=== PATIENT | male | born 1970 | race Two or more races ===

== ENCOUNTER 2024-07-07 16:49 | Inpatient (IN) | payer OTHER, SELFPAY ==
[~2024-07-07] VITALS: Ht 172.7 cm; Wt 104.8 kg
[~2024-07-07 16:49] MED LIST: ASPI81CH43; IBU600T
[2024-07-07 19:10] LABS: Hemoglobin 9.8 g/dL (13.5-17.5)
[2024-07-07 19:13] LABS: Hematocrit 29.5 % (41.0-53.0); Mean Corpuscular Hemoglobin 31.3 pg (28.0-32.0); Mean Corpuscular Hgb Conc. 33.1 g/dL (32.0-36.0); Mean Corpuscular Volume 94.6 fL (80.0-100.0); Platelet Count (auto) 24 10^3/uL (140-450); Red Blood Cells 3.12 10^6/uL (4.5-5.90); White Blood Cell 2.5 10^3/uL (4.4-10.8)
[2024-07-07 19:30] LABS: Alanine Aminotransferase 23 U/L (7-40); Albumin 4.8 g/dL (3.2-4.8); Alkaline Phosphatase 82 U/L (46-116); Anion Gap 9 (5-15); Aspartate Aminotransferase 16 U/L (13-40); BUN/Creatinine Ratio 15.8 (10.0-20.0); Bilirubin, Total 0.5 mg/dL (0.2-1.0); Blood Urea Nitrogen 15 mg/dL (9-23); Calcium 9.5 mg/dL (8.7-10.4); Carbon Dioxide 25 mmol/L (20-30); Chloride 105 mmol/L (98-107); Glucose 97 mg/dL (74-106); Potassium 4.2 mmol/L (3.5-5.1); Sodium 139 mmol/L (136-145); Total Protein 7.7 g/dL (5.7-8.2)
[2024-07-07 20:00] LABS: Band Neutrophils % (manual) 0; Basophils % (manual) 0 (0.0-2.0); Blast Cells 0; Eosinophils % (manual) 0 (0-7); Metamyelocytes % 0; Myelocytes % 0; Promyelocytes % 0; Reactive Lymphocytes 0
[2024-07-07 20:16] LABS: Urine Bacteria None Seen /hpf (None Seen); Urine WBC None Seen /hpf (0 - 3)
[2024-07-07 20:23] LABS: Urine Blood Negative /uL (Negative); Urine Clarity Clear (Clear); Urine Color Light-Yellow (Yellow); Urine Protein, UAD 1+ (Negative); Urine Urobilinogen Normal (Negative)
[2024-07-07 21:04] LABS: Anisocytosis Moderate; Lymphocytes % (manual) 71 (10.0-50.0); Monocytes % (manual) 8 (0-12); Platelet Estimate Decreased
[2024-07-07] MEDS ORDERED: ACETAMINOPHEN 325 MG TAB PO PRN (22:30)
[2024-07-07] MEDS ORDERED: ONDANSETRON HCL 4 MG/2 ML VIAL IV PRN (22:30)
[2024-07-07 23:08] LABS: % Iron Saturation 37.6 % (20-55)
[2024-07-08] VITALS (9 sets, daily range): BP systolic 119–124; BP diastolic 42–61; PULSE 70–79; RESP 16–22; TEMP 98.1–98.4; O2SAT 95–100
[2024-07-08] MEDS ORDERED: MUPI2OIN2 TOP (01:10)
[2024-07-08 07:54] LABS: Mean Corpuscular Hgb Conc. 33.2 g/dL (32.0-36.0); White Blood Cell 2.7 10^3/uL (4.4-10.8)
[2024-07-08 07:58] LABS: Hematocrit 28.4 % (41.0-53.0); Hemoglobin 9.4 g/dL (13.5-17.5); Mean Corpuscular Hemoglobin 31.1 pg (28.0-32.0); Mean Corpuscular Volume 93.7 fL (80.0-100.0); Red Blood Cells 3.03 10^6/uL (4.5-5.90)
[2024-07-08 07:59] LABS: Red Cell Distribution Width 20.5 % (11.8-14.3)
[2024-07-08 08:00] LABS: Platelet Count (auto) 28 10^3/uL (140-450)
[2024-07-08 08:01] LABS: Basophils % (manual) 0 (0.0-2.0); Blast Cells 0; Eosinophils % (manual) 0 (0-7); Myelocytes % 0; Promyelocytes % 0
[2024-07-08 08:17] LABS: Alanine Aminotransferase 26 U/L (7-40); Albumin 4.5 g/dL (3.2-4.8); Alkaline Phosphatase 67 U/L (46-116); Anion Gap 6 (5-15); Aspartate Aminotransferase 14 U/L (13-40); Blood Urea Nitrogen 13 mg/dL (9-23); Calcium 9.3 mg/dL (8.7-10.4); Carbon Dioxide 26 mmol/L (20-30); Chloride 107 mmol/L (98-107); Glucose 95 mg/dL (74-106); Potassium 4.1 mmol/L (3.5-5.1); Sodium 139 mmol/L (136-145)
[2024-07-08 08:18] LABS: Bilirubin, Total 0.7 mg/dL (0.2-1.0); Total Protein 7.1 g/dL (5.7-8.2)
[2024-07-08 12:12] LABS: Band Neutrophils % (manual) 7; Lymphocytes % (manual) 49 (10.0-50.0); Metamyelocytes % 2; Monocytes % (manual) 8 (0-12); Reactive Lymphocytes 1
[2024-07-08 12:13] LABS: Platelet Estimate Decreased
[2024-07-08] MEDS: TAMSULOSIN HYDROCHLORIDE 0.4 MG CAP PO ONE (19:53)
[2024-07-09] VITALS (8 sets, daily range): BP systolic 97–137; BP diastolic 43–69; PULSE 69–85; RESP 14–18; TEMP 97.6–98.3; O2SAT 96–98
[2024-07-09 01:08] LABS: COVID19 ANTIGEN SOFIA FIA NEGATIVE (NEGATIVE); Rapid Influenza A Negative (Negative); Rapid Influenza B Negative (Negative)
[2024-07-09 01:58] LABS: Amphetamine Screen, Urine Neg (NEGATIVE); Barbiturate Scree,Urine Neg (NEGATIVE); Benzodiazephine Screen, Urine Neg (NEGATIVE); Cocaine Screen, Urine Neg (NEGATIVE); Opiate Scree,Urine Neg (NEGATIVE)
[2024-07-09 01:59] LABS: Cannabinoid Screen, Urine Neg (NEGATIVE); Phencyclidine Screen, Urine Neg (NEGATIVE)
[2024-07-09 06:06] LABS: CA 27.29 16.6 U/mL (0.0-38.6)
[2024-07-09 06:12] LABS: Anion Gap 7 (5-15); Carbon Dioxide 26 mmol/L (20-30); Chloride 106 mmol/L (98-107); Potassium 4.3 mmol/L (3.5-5.1); Sodium 139 mmol/L (136-145)
[2024-07-09 06:13] LABS: Calcium 9.4 mg/dL (8.7-10.4); Hemoglobin 9.5 g/dL (13.5-17.5); Mean Corpuscular Hemoglobin 31.4 pg (28.0-32.0); White Blood Cell 2.8 10^3/uL (4.4-10.8)
[2024-07-09 06:16] LABS: Hematocrit 28.5 % (41.0-53.0); Mean Corpuscular Hgb Conc. 33.3 g/dL (32.0-36.0); Mean Corpuscular Volume 94.5 fL (80.0-100.0); Platelet Count (auto) 26 10^3/uL (140-450); Red Blood Cells 3.02 10^6/uL (4.5-5.90); Red Cell Distribution Width 19.7 % (11.8-14.3)
[2024-07-09 06:18] LABS: BUN/Creatinine Ratio 14.3 (10.0-20.0); Blood Urea Nitrogen 12 mg/dL (9-23); Glucose 98 mg/dL (74-106)
[2024-07-09 06:22] LABS: Basophils % (manual) 0 (0.0-2.0); Blast Cells 0; Eosinophils % (manual) 0 (0-7); Myelocytes % 0; Promyelocytes % 0; Reactive Lymphocytes 0
[2024-07-09 07:08] LABS: INR 1.1 (0.9-1.15); Partial Thromboplastin Time 23.4 SEC (24.5-34.5); Prothrombin Time 11.6 sec (9.3-11.8)
[2024-07-09 09:12] LABS: Hepatitis B Core Total AB Negative (Negative)
[2024-07-09 09:29] LABS: Hepatitis A Total Antibody Positive (Negative)
[2024-07-09 09:30] LABS: Hepatitis B Surface Antibody Negative (Negative); Hepatitis B Surface Antigen Negative (Negative); Hepatitis C Antibody Negative (Negative)
[2024-07-09 10:28] LABS: Band Neutrophils % (manual) 5; Lymphocytes % (manual) 71 (10.0-50.0); Metamyelocytes % 2; Monocytes % (manual) 6 (0-12); Platelet Estimate Decreased
[2024-07-09 12:07] LABS: Cancer Antigen (CA) 125 8.2 U/mL (Not Estab.)
[2024-07-09 13:06] LABS: Anti-Centromere B Antibody <0.2 AI (0.0-0.9); Anti-Jo-1 Antibody <0.2 AI (0.0-0.9); Anti-dsDNA Antibody <1 IU/mL (0-9); Antichromatin Antibody <0.2 AI (0.0-0.9); Antiscleroderma-70 Antibody <0.2 AI (0.0-0.9); RNP Antibody <0.2 AI (0.0-0.9); Sjogren's Anti-SS-A Antibody <0.2 AI (0.0-0.9); Sjogren's Anti-SS-B Antibody <0.2 AI (0.0-0.9); Smith Antibody <0.2 AI (0.0-0.9)
[2024-07-09] MEDS: TAMSULOSIN HYDROCHLORIDE 0.4 MG CAP PO SCH (18:00)
[2024-07-09 21:06] LABS: CMV IgG Antibody <0.60 U/mL (0.00-0.59); CMV IgM Antibody <30.0 AU/mL (0.0-29.9)
[2024-07-10 01:09] VITALS: BP 132/72; PULSE 83; RESP 14; TEMP 98.1; O2SAT 96
[2024-07-10 06:44] LABS: Hematocrit 30.6 % (41.0-53.0); Red Blood Cells 3.27 10^6/uL (4.5-5.90)
[2024-07-10 06:48] LABS: Hemoglobin 10.3 g/dL (13.5-17.5); Mean Corpuscular Hemoglobin 31.4 pg (28.0-32.0); Mean Corpuscular Hgb Conc. 33.6 g/dL (32.0-36.0); Mean Corpuscular Volume 93.6 fL (80.0-100.0); Platelet Count (auto) 27 10^3/uL (140-450); Red Cell Distribution Width 19.8 % (11.8-14.3); White Blood Cell 2.7 10^3/uL (4.4-10.8)
[2024-07-10 07:06] LABS: Chloride 103 mmol/L (98-107); Potassium 4.1 mmol/L (3.5-5.1); Sodium 138 mmol/L (136-145)
[2024-07-10 07:07] LABS: Anion Gap 8 (5-15); Calcium 9.7 mg/dL (8.7-10.4); Carbon Dioxide 27 mmol/L (20-30)
[2024-07-10 07:08] LABS: Basophils % (manual) 0 (0.0-2.0); Blast Cells 0; Eosinophils % (manual) 0 (0-7); Metamyelocytes % 0; Promyelocytes % 0; Reactive Lymphocytes 0
[2024-07-10 07:12] LABS: BUN/Creatinine Ratio 15.7 (10.0-20.0); Blood Urea Nitrogen 13 mg/dL (9-23); Glucose 101 mg/dL (74-106)
[2024-07-10 09:00] VITALS: BP 142/69; PULSE 77; RESP 18; TEMP 97.9; O2SAT 97
[2024-07-10] MEDS: LIDOCAINE 2%HCL (LOCAL ANESTH.) INJ 10ml MDV ONE (09:42)
[2024-07-10] MEDS: MIDAZOLAM HCL 2MG/2ML 2ml VIAL (1mg/ml) IV ONE (10:15)
[2024-07-10] MEDS: fentaNYL CITRATE 100 MCG/2 ML VL IV ONE (10:15)
[2024-07-10 11:31] LABS: Band Neutrophils % (manual) 1; Lymphocytes % (manual) 63 (10.0-50.0); Monocytes % (manual) 7 (0-12); Myelocytes % 2; Platelet Estimate Decreased
[2024-07-10 13:00] VITALS: BP 116/59; PULSE 71; RESP 17; TEMP 98.2; O2SAT 96
[2024-07-10] MEDS ORDERED: TAMS-35 PO (15:16)
[2024-07-10] MEDS ORDERED: ACET-1882 PO (15:16)
== END 2024-07-10 15:36 | disposition home or self-care (01) | DRG 835 ==
LOC: ER 16:49 → OVERFLOW 22:29 → CENTRAL 22:29
PROVIDERS: ADMIT Internal Medicine Pulmonary Disease; ATTEND Emergency Medicine
PROC: 0D9 Gastrointestinal System, Drainage (ICD-10-PCS; principal; 2024-07-10)
DX: C92.00 Acute myeloblastic leukemia, not having achieved remission (principal); D61.818 Other pancytopenia; D46.C Myelodysplastic syndrome with isolated del(5q) chromosomal abnormality; N20.0 Calculus of kidney; E66.9 Obesity, unspecified; S81.802A Unspecified open wound, left lower leg, initial encounter; Z20.822 Contact with and (suspected) exposure to COVID-19; W57.XXXA Bitten or stung by nonvenomous insect and other nonvenomous arthropods, initial encounter; Z68.35 Body mass index [BMI] 35.0-35.9, adult; Z82.3 Family history of stroke; Z83.3 Family history of diabetes mellitus; Y93.89 Activity, other specified; Y92.89 Other specified places as the place of occurrence of the external cause; Y99.8 Other external cause status
CPT/HCPCS: 10005; 36415; 71045; 72192; 74176; 77012; 80048; 80053; 80307; 81001; 82306; 82607; 82746; 83010; 83036; 83516; 83540; 83550; 83605; 83615; 84484; 85007; 85027; 85045; 85384; 85610; 85730; 86225; 86235; 86300; 86301; 86304; 86644; 86645; 86703; 86704; 86706; 86708; 86803; 86850; 86900; 86901; 87340; 87426; 87804; 93005; G0378; J2001; J2250